=== PATIENT | male | born 1980 | race Caucasian/White ===

== ENCOUNTER 2017-03-02 15:21 | Emergency (ER) | payer MEDICAID ==
[~2017-03-02] VITALS: Ht 195.6 cm; Wt 115.9 kg
[~2017-03-02 15:21] MED LIST: ALPR0.25; LORA0.5T; OLAN1CAP14; TEMA30CA
[2017-03-02] MEDS ORDERED: LIDOCAINE 1%, 20ML SQ ONE (16:00)
[2017-03-02 16:09] LABS: BLOOD UREA NITROGEN 9 mg/dL (7-18)
[2017-03-02] MEDS ORDERED: LIDOCAINE 1%, 20ML ONE (16:09)
[2017-03-02] MEDS ORDERED: SODIUM CHLORIDE 0.9% 1,000ML IVBOLUS ONE (16:30)
[2017-03-02 18:26] VITALS: BP 91/68
== END 2017-03-02 18:28 | disposition home or self-care (01) ==
LOC: ED 18:17
DX: S92.514B Nondisplaced fracture of proximal phalanx of right lesser toe(s), initial encounter for open fracture (principal); S91.115A Laceration without foreign body of left lesser toe(s) without damage to nail, initial encounter; R55 Syncope and collapse; I95.2 Hypotension due to drugs; T50.905A Adverse effect of unspecified drugs, medicaments and biological substances, initial encounter; F17.200 Nicotine dependence, unspecified, uncomplicated; W18.39XA Other fall on same level, initial encounter; Y93.01 Activity, walking, marching and hiking; Y92.000 Kitchen of unspecified non-institutional (private) residence as the place of occurrence of the external cause; Y99.8 Other external cause status
CPT/HCPCS: 12001; 36415; 80048; 82040; 85025; 93005

== ENCOUNTER 2017-04-27 08:50 | Inpatient (IN) | payer MEDICAID ==
[~2017-04-27] VITALS: Ht 195.6 cm; Wt 118.4 kg
[2017-04-27] MEDS ORDERED: SODIUM CHLORIDE FLUSH 10ML SYR IVF ONE (09:30)
[2017-04-27] MEDS ORDERED: FAMOTIDINE 20 MG/2 ML IVP ONE (09:30)
[2017-04-27] MEDS ORDERED: ONDANSETRON 2MG/ML, 2ML ONE (09:38)
[2017-04-27] MEDS ORDERED: FAMOTIDINE 20 MG/2 ML ONE (09:38)
[2017-04-27 09:46] LABS: HEMATOCRIT 55.6 % (39.2-51.8); HEMOGLOBIN 18.6 g/dL (13.7-18.0); WHITE BLOOD COUNT 20.5 x10^3/uL (3.4-10)
[2017-04-27] MEDS ORDERED: SODIUM CHLORIDE 0.9% 1,000 ML IV ONE (10:00)
[2017-04-27] MEDS ORDERED: SODIUM CHLORIDE 0.9% 1,000ML IVBOLUS ONE ×4 (10:00→16:15)
[2017-04-27] MEDS ORDERED: ONDANSETRON 2MG/ML, 2ML IVPush ONE (10:00)
[2017-04-27 11:24] LABS: BLOOD UREA NITROGEN 8 mg/dL (7-18)
[2017-04-27 11:42] LABS: ASPARTATE AMINO TRANSFERASE 130 U/L (15-37)
[2017-04-27] MEDS ORDERED: PROMETHAZINE 25 MG/ML, 1ML ONE (11:59)
[2017-04-27] MEDS ORDERED: PROMETHAZINE 25 MG/ML, 1ML IM ONE (12:00)
[2017-04-27] MEDS ORDERED: ACETAMINOPHEN 650 MG SUPP PR ONE (12:00)
[2017-04-27] MEDS ORDERED: CEFTRIAXONE PMX 1GM/50ML 50 ML IVPB ONE (12:00)
[2017-04-27 12:04] LABS: PH, VENOUS 7.461 pH (7.320-7.420)
[2017-04-27] MEDS ORDERED: LORazepam 2 MG/ML, 1ML ONE ×2 (12:50→13:43)
[2017-04-27] MEDS: LORazepam 2 MG/ML, 1ML IVPush PRN ×5 (12:52→22:10)
[2017-04-27] MEDS ORDERED: LORazepam 2 MG/ML, 1ML IVPush ONE (14:00)
[2017-04-27] MEDS: SODIUM CHLORIDE 0.9% 1,000 ML IV SCH ×2 (14:02→20:14)
[2017-04-27] MEDS ORDERED: ONDANSETRON 2MG/ML, 2ML IVPush PRN (14:30)
[2017-04-27] MEDS ORDERED: POLYETHYLENE GLYCOL 17 GM PACKET PO PRN (14:30)
[2017-04-27] MEDS ORDERED: ACETAMINOPHEN 325 MG TABLET PO PRN (14:30)
[2017-04-27] MEDS: HYDROmorphone 2 MG/ML, 1ML IVPush PRN ×4 (15:45→23:36)
[2017-04-27 16:20] VITALS: BP 145/98
[2017-04-27] MEDS ORDERED: SODIUM PHOSPHATE 20 MMOL in SODIUM CHLORIDE 0.9% 500 ML IV ONE (16:30)
[2017-04-27] MEDS: PANTOPROZOLE 40MG TABLET PO SCH (16:46)
[2017-04-27] MEDS: NICOTINE 14MG/24 HR PATCH.TD24 TD SCH (16:49)
[2017-04-27] MEDS: CHLORDIAZEPOXIDE 25 MG CAPSULE PO SCH ×2 (17:06→21:01)
[2017-04-27] MEDS: LABETALOL 5MG/ML, 20ML IVPush PRN ×2 (18:05→22:18)
[2017-04-27] MEDS: ENOXAPARIN 40 MG/0.4 ML SQ SCH (18:05)
[2017-04-27] MEDS: POTASSIUM CHLORIDE 20 MEQ, MAGNESIUM SULFATE 2 GM, THIAMINE 100 MG, MVI ADULT 10 ML, FO... IV SCH (20:11)
[2017-04-27] MEDS: PROMETHAZINE 25 MG/ML, 1ML IM PRN (21:01)
[2017-04-27] MEDS ORDERED: OMEP20TA62 PO (21:46)
[2017-04-27] MEDS ORDERED: CYCL-259 PO (21:46)
[2017-04-27] MEDS ORDERED: GABA-826 PO (21:46)
[2017-04-27] MEDS ORDERED: TIZA2CAP PO (21:46)
[2017-04-27] MEDS ORDERED: PROP80CA3 PO (21:47)
[2017-04-27] MEDS: OXYcodone IR 5MG TABLET PO PRN (21:54)
[2017-04-27] MEDS: PIPERACILLIN/TAZO/PMX 3.375GM 50 ML IV SCH (22:02)
[2017-04-28] MEDS: LORazepam 2 MG/ML, 1ML IVPush PRN ×10 (00:19→23:36)
[2017-04-28] MEDS: LABETALOL 5MG/ML, 20ML IVPush PRN ×5 (01:08→14:26)
[2017-04-28] MEDS: PIPERACILLIN/TAZO/PMX 3.375GM 50 ML IV SCH ×4 (01:29→19:51)
[2017-04-28] MEDS: PROMETHAZINE 25 MG/ML, 1ML IM PRN ×2 (02:38→12:14)
[2017-04-28] MEDS: HYDROmorphone 2 MG/ML, 1ML IVPush PRN ×3 (02:50→22:29)
[2017-04-28 04:55] LABS: HEMATOCRIT 41.4 % (39.2-51.8); HEMOGLOBIN 14.1 g/dL (13.7-18.0); WHITE BLOOD COUNT 12.4 x10^3/uL (3.4-10)
[2017-04-28 04:56] LABS: ASPARTATE AMINO TRANSFERASE 93 U/L (15-37)
[2017-04-28 05:07] LABS: BLOOD UREA NITROGEN 5 mg/dL (7-18)
[2017-04-28] MEDS: CHLORDIAZEPOXIDE 25 MG CAPSULE PO SCH ×4 (05:34→20:34)
[2017-04-28] MEDS: OXYcodone IR 5MG TABLET PO PRN ×3 (05:53→21:36)
[2017-04-28] MEDS ORDERED: POTASSIUM CHLORIDE 20 MEQ TAB.ER.PRT PO ONE (07:30)
[2017-04-28] MEDS: SODIUM CHLORIDE 0.45% 1,000 ML IV SCH ×3 (09:30→21:38)
[2017-04-28] MEDS ORDERED: SODIUM CHLORIDE 0.45% 1,000 ML IV SCH (09:30)
[2017-04-28] MEDS: SENNA/DOCUSATE TABLET PO SCH (10:06)
[2017-04-28] MEDS: PANTOPROZOLE 40MG TABLET PO SCH ×2 (10:06→20:34)
[2017-04-28] MEDS: ENOXAPARIN 40 MG/0.4 ML SQ SCH (13:51)
[2017-04-28] MEDS: NICOTINE 14MG/24 HR PATCH.TD24 TD SCH (13:51)
[2017-04-28] MEDS ORDERED: SODIUM CHLORIDE 0.9% 1,000 ML IV SCH (14:02)
[2017-04-28] MEDS: POTASSIUM CHLORIDE 20 MEQ, MAGNESIUM SULFATE 2 GM, THIAMINE 100 MG, MVI ADULT 10 ML, FO... IV SCH (14:29)
[2017-04-28] MEDS ORDERED: ALUMINUM/MAG/SIMETHICONE 30 ML UDC PO PRN (15:30)
[2017-04-29] MEDS: PIPERACILLIN/TAZO/PMX 3.375GM 50 ML IV SCH ×4 (01:21→20:04)
[2017-04-29] MEDS: LORazepam 2 MG/ML, 1ML IVPush PRN ×6 (01:21→21:38)
[2017-04-29] MEDS: HYDROmorphone 2 MG/ML, 1ML IVPush PRN ×2 (01:39→04:39)
[2017-04-29] MEDS: SODIUM CHLORIDE 0.45% 1,000 ML IV SCH ×2 (03:33→13:12)
[2017-04-29] MEDS: CHLORDIAZEPOXIDE 25 MG CAPSULE PO SCH ×3 (05:20→20:05)
[2017-04-29 06:06] LABS: HEMOGLOBIN 13.7 g/dL (13.7-18.0); WHITE BLOOD COUNT 8.5 x10^3/uL (3.4-10)
[2017-04-29 06:10] LABS: ASPARTATE AMINO TRANSFERASE 86 U/L (15-37); BLOOD UREA NITROGEN 5 mg/dL (7-18)
[2017-04-29] MEDS: PANTOPROZOLE 40MG TABLET PO SCH ×2 (09:09→20:05)
[2017-04-29] MEDS: SENNA/DOCUSATE TABLET PO SCH (09:09)
[2017-04-29] MEDS: POTASSIUM CHLORIDE 20 MEQ TAB.ER.PRT PO SCH ×2 (09:13→18:29)
[2017-04-29 12:03] VITALS: BP 149/101
[2017-04-29] MEDS: ENOXAPARIN 40 MG/0.4 ML SQ SCH (15:50)
[2017-04-29] MEDS: NICOTINE 14MG/24 HR PATCH.TD24 TD SCH (15:51)
[2017-04-29] MEDS: POTASSIUM CHLORIDE 20 MEQ, MAGNESIUM SULFATE 2 GM, THIAMINE 100 MG, MVI ADULT 10 ML, FO... IV SCH (16:52)
[2017-04-29 18:24] VITALS: BP 124/80
[2017-04-29] MEDS ORDERED: POLYETHYLENE GLYCOL 17 GM PACKET PO PRN (19:30)
[2017-04-29] MEDS ORDERED: ACETAMINOPHEN 325 MG TABLET PO PRN (19:30)
[2017-04-29] MEDS ORDERED: PROMETHAZINE 25 MG/ML, 1ML IM PRN (19:30)
[2017-04-30] VITALS (11 sets, daily range): BP systolic 129–167; BP diastolic 82–111
[2017-04-30] MEDS: PIPERACILLIN/TAZO/PMX 3.375GM 50 ML IV SCH ×4 (01:43→20:25)
[2017-04-30] MEDS: SODIUM CHLORIDE 0.45% 1,000 ML IV SCH (03:02)
[2017-04-30 06:26] LABS: BLOOD UREA NITROGEN 3 mg/dL (7-18)
[2017-04-30] MEDS: CHLORDIAZEPOXIDE 25 MG CAPSULE PO SCH ×2 (07:36→15:02)
[2017-04-30] MEDS: SENNA/DOCUSATE TABLET PO SCH (07:37)
[2017-04-30] MEDS: PANTOPROZOLE 40MG TABLET PO SCH ×2 (07:37→20:25)
[2017-04-30] MEDS ORDERED: SENNA/DOCUSATE TABLET PO SCH (09:00)
[2017-04-30] MEDS: LORazepam 2 MG/ML, 1ML IVPush PRN ×2 (09:45→22:41)
[2017-04-30] MEDS: LABETALOL 5MG/ML, 20ML IVPush PRN ×2 (13:15→20:42)
[2017-04-30] MEDS: NICOTINE 14MG/24 HR PATCH.TD24 TD SCH (14:50)
[2017-04-30] MEDS: ENOXAPARIN 40 MG/0.4 ML SQ SCH (15:02)
[2017-04-30] MEDS: LISINOPRIL 10 MG TABLET PO SCH (16:40)
[2017-04-30] MEDS: CARVEDILOL 6.25 MG TABLET PO SCH (16:41)
[2017-04-30] MEDS ORDERED: PNEUMOCOCCAL 23 VACCINE IM-VACC ONE (22:30)
[2017-05-01] VITALS (7 sets, daily range): BP systolic 127–163; BP diastolic 91–112
[2017-05-01] MEDS: PIPERACILLIN/TAZO/PMX 3.375GM 50 ML IV SCH ×3 (02:04→14:00)
[2017-05-01] MEDS: CARVEDILOL 6.25 MG TABLET PO SCH (06:10)
[2017-05-01] MEDS: PANTOPROZOLE 40MG TABLET PO SCH (08:29)
[2017-05-01] MEDS: SENNA/DOCUSATE TABLET PO SCH (08:29)
[2017-05-01] MEDS: LISINOPRIL 10 MG TABLET PO SCH (08:30)
[2017-05-01] MEDS: NICOTINE 14MG/24 HR PATCH.TD24 TD SCH (14:30)
[2017-05-01] MEDS: ENOXAPARIN 40 MG/0.4 ML SQ SCH (14:30)
[2017-05-01] MEDS ORDERED: CIPR500T87 PO (14:32)
[2017-05-01] MEDS ORDERED: LISI-167 PO (14:32)
== END 2017-05-01 16:08 | disposition home or self-care (01) | DRG 871 ==
LOC: ED 09:45 → EDIP 14:14 → CCU 15:16 → 4NOR 04-29 11:50 → DCLOUNGE 05-01 15:52
PROVIDERS: ADMIT Internal Medicine; ATTEND Internal Medicine
DX: A41.9 Sepsis, unspecified organism (principal); N17.0 Acute kidney failure with tubular necrosis; E87.4 Mixed disorder of acid-base balance; F10.231 Alcohol dependence with withdrawal delirium; N12 Tubulo-interstitial nephritis, not specified as acute or chronic; E86.0 Dehydration; F31.9 Bipolar disorder, unspecified; F42.9 Obsessive-compulsive disorder, unspecified; F60.9 Personality disorder, unspecified; I10 Essential (primary) hypertension; K21.9 Gastro-esophageal reflux disease without esophagitis; K70.10 Alcoholic hepatitis without ascites; G62.9 Polyneuropathy, unspecified; F17.210 Nicotine dependence, cigarettes, uncomplicated; D75.89 Other specified diseases of blood and blood-forming organs; F12.90 Cannabis use, unspecified, uncomplicated; F41.9 Anxiety disorder, unspecified; M54.9 Dorsalgia, unspecified; R63.0 Anorexia; Z87.11 Personal history of peptic ulcer disease; Z68.31 Body mass index [BMI] 31.0-31.9, adult
CPT/HCPCS: 36415; 74022; 74176; 80047; 80048; 80053; 80061; 81001; 82010; 82550; 82607; 82746; 82803; 82962; 83036; 83605; 83690; 83735; 84100; 84443; 85025; 85610; 87040; 87081; 87086; 90732; 93005; 96361; 96365; 96372; 96375; J0696; J1170; J1650; J2405; J2543; J2550; J3411; J3475; J3480; J7042; J2060; J7030; J7040; S0028

== ENCOUNTER 2017-08-02 10:32 | Inpatient (IN) | payer MEDICAID ==
[~2017-08-02] VITALS: Ht 195.6 cm; Wt 113.0 kg
[~2017-08-02 10:32] MED LIST changes: +CIPR500T87 PO; +CYCL-259 PO; +GABA-826 PO; +LISI-167 PO; +OMEP20TA62 PO; +PROP80CA3 PO; +TIZA2CAP PO
[2017-08-02] MEDS ORDERED: ONDANSETRON 2MG/ML, 2ML ONE (11:44)
[2017-08-02] MEDS ORDERED: MAALOX/HYOSCYAMINE/LIDOCAINE 45 ML BTL ONE (11:44)
[2017-08-02] MEDS ORDERED: FAMOTIDINE 20 MG/2 ML ONE (11:44)
[2017-08-02 11:52] LABS: MEAN CORPUSCULAR HEMOGLOBIN 31.6 pg (27.5-34.5); MEAN CORPUSCULAR HGB CONC 33.6 g/dL (33.2-36.2); MEAN CORPUSCULAR VOLUME 94.1 fL (81-97); MEAN PLATELET VOLUME 10.7 fL (7.4-10.4); PLATELET COUNT 236 x10^3/uL (130-400); RED BLOOD COUNT 5.54 x10^6/uL (4.38-5.82)
[2017-08-02 11:56] LABS: ALBUMIN 4.3 g/dL (3.4-5.0); ANION GAP 9 mmol/L (5-15); CALCIUM 8.9 mg/dL (8.5-10.1); CHLORIDE 103 mmol/L (98-107)
[2017-08-02 12:00] LABS: ALANINE AMINOTRANSFERASE 34 U/L (12-78); ALKALINE PHOSPHATASE 71 U/L (45-117); BILIRUBIN,TOTAL 1.1 mg/dL (0.2-1.0); CREATININE 2.24 mg/dL (0.7-1.3); TOTAL PROTEIN 8.8 g/dL (6.4-8.2)
[2017-08-02] MEDS ORDERED: SODIUM CHLORIDE FLUSH 10ML SYR IVF ONE (12:00)
[2017-08-02] MEDS ORDERED: FAMOTIDINE 20 MG/2 ML IVP ONE (12:00)
[2017-08-02] MEDS ORDERED: LORazepam 2 MG/ML, 1ML IVPush ONE ×2 (12:00→23:45)
[2017-08-02] MEDS ORDERED: SODIUM CHLORIDE 0.9% 1,000ML IVBOLUS ONE (12:00)
[2017-08-02] MEDS ORDERED: MAALOX/HYOSCYAMINE/LIDOCAINE 45 ML BTL PO ONE (12:00)
[2017-08-02] MEDS ORDERED: ONDANSETRON 2MG/ML, 2ML IVPush ONE (12:00)
[2017-08-02 12:14] LABS: BASOPHILS # (AUTO) 0.05 x10^3/uL (0-0.1); BASOPHILS % (AUTO) 0 % (0-1); EOSINOPHILS # (AUTO) 0.21 x10^3/uL (0-0.4); EOSINOPHILS % (AUTO) 2 % (1-7); LYMPHOCYTES # (AUTO) 1.45 x10^3/uL (1-3.4); LYMPHOCYTES % (AUTO) 10 % (22-44); MD SCAN; MONOCYTES # (AUTO) 1.49 x10^3/uL (0.2-0.8); MONOCYTES % (AUTO) 10 % (2-9); NEUTROPHILS # (AUTO) 11.34 x10^3/uL (1.8-6.8); NEUTROPHILS % (AUTO) 78 % (42-75)
[2017-08-02] MEDS: SODIUM CHLORIDE 0.9% 1,000 ML IV ONE (12:18)
[2017-08-02] MEDS ORDERED: MORPHINE SULFATE 4 MG/ML, 1ML ONE ×2 (12:20→18:32)
[2017-08-02] MEDS: MORPHINE SULFATE 4 MG/ML, 1ML IVPush PRN ×2 (12:26→18:49)
[2017-08-02] MEDS: SODIUM CHLORIDE 0.9% 1,000 ML IV SCH ×3 (13:23→23:15)
[2017-08-02] MEDS ORDERED: ONDANSETRON 2MG/ML, 2ML IVPush PRN (13:30)
[2017-08-02] MEDS ORDERED: TEMAZEPAM 15 MG CAPSULE PO PRN (13:30)
[2017-08-02] MEDS ORDERED: ACETAMINOPHEN 325 MG TABLET PO PRN (13:30)
[2017-08-02] MEDS ORDERED: GUAIFENESIN/DM 200-20MG, 10ML UDC PO PRN (13:30)
[2017-08-02] MEDS ORDERED: GABA800T2 PO (14:32)
[2017-08-02] MEDS ORDERED: BUSP5TAB2 PO (14:32)
[2017-08-02] MEDS ORDERED: LISI40TA PO (14:32)
[2017-08-02] MEDS ORDERED: ZOLP10TA5 PO (14:34)
[2017-08-02] MEDS ORDERED: PRAZ1CAP2 PO (14:34)
[2017-08-02] MEDS ORDERED: TIZA4CAP PO (14:34)
[2017-08-02] MEDS ORDERED: ENOXAPARIN 40 MG/0.4 ML ONE (16:16)
[2017-08-02] MEDS: ENOXAPARIN 40 MG/0.4 ML SQ SCH (16:18)
[2017-08-02 19:11] LABS: MICROSCOPIC INDICATED
[2017-08-02 19:19] LABS: AMPHETAMINE SCREEN, URINE Negative (Negative); BARBITURATE SCREEN, URINE Negative (Negative); BENZODIAZEPINE SCREEN, URINE Negative (Negative); CANNABINOID SCREEN, URINE Positive (Negative); COCAINE SCREEN, URINE Negative (Negative); METHADONE SCREEN, URINE Negative (Negative); OPIATE SCREEN, URINE Positive (Negative)
[2017-08-02 19:35] LABS: CULTURE INDICATED? NO
[2017-08-02] MEDS: ZOLPIDEM 5MG TABLET PO SCH (21:00)
[2017-08-02] MEDS: TIZANIDINE 4MG TABLET PO SCH (21:00)
[2017-08-02] MEDS: PRAZOSIN 1 MG CAPSULE PO SCH (21:00)
[2017-08-02] MEDS: GABAPENTIN 400 MG CAPSULE PO SCH (21:00)
[2017-08-02] MEDS: morphine SULFATE 10 MG/ML, 1ML IVPush PRN (23:15)
[2017-08-02 23:30] VITALS: BP 130/79
[2017-08-03 01:51] VITALS: BP 118/76
[2017-08-03] MEDS: morphine SULFATE 10 MG/ML, 1ML IVPush PRN ×5 (03:22→21:13)
[2017-08-03 05:16] LABS: MEAN CORPUSCULAR HEMOGLOBIN 31.7 pg (27.5-34.5); MEAN CORPUSCULAR HGB CONC 33.5 g/dL (33.2-36.2); MEAN CORPUSCULAR VOLUME 94.8 fL (81-97); MEAN PLATELET VOLUME 10.7 fL (7.4-10.4); PLATELET COUNT 180 x10^3/uL (130-400); RED BLOOD COUNT 4.84 x10^6/uL (4.38-5.82); RED CELL DISTRIBUTION WIDTH 14.1 % (9.4-14.8)
[2017-08-03 05:17] LABS: ANION GAP 8 mmol/L (5-15); CHLORIDE 108 mmol/L (98-107)
[2017-08-03 05:25] LABS: ALANINE AMINOTRANSFERASE 19 U/L (12-78); ALBUMIN 3.2 g/dL (3.4-5.0); ALKALINE PHOSPHATASE 56 U/L (45-117); BILIRUBIN,TOTAL 1.4 mg/dL (0.2-1.0); CHOL/HDL RATIO 3.8; CHOLESTEROL, TOTAL 134 mg/dL (140-239); CREATININE 1.03 mg/dL (0.7-1.3); HDL CHOL % 26 % (26-37); HDL CHOLESTEROL (DIRECT) 35 mg/dL (40-60); LDL CHOLESTEROL,CALCULATED 77 mg/dL (54-169); LDL/HDL RATIO 2.2 (0.5-3.0); TRIGLYCERIDES 110 mg/dL (50-200); VLDL CHOLESTEROL 22 mg/dL (0-25)
[2017-08-03 05:47] LABS: BASOPHILS # (AUTO) 0.06 x10^3/uL (0-0.1); BASOPHILS % (AUTO) 0 % (0-1); EOSINOPHILS # (AUTO) 0.13 x10^3/uL (0-0.4); EOSINOPHILS % (AUTO) 1 % (1-7); LYMPHOCYTES # (AUTO) 1.52 x10^3/uL (1-3.4); LYMPHOCYTES % (AUTO) 10 % (22-44); MD SCAN; MONOCYTES % (AUTO) 11 % (2-9); NEUTROPHILS # (AUTO) 11.27 x10^3/uL (1.8-6.8); NEUTROPHILS % (AUTO) 77 % (42-75)
[2017-08-03] MEDS: SODIUM CHLORIDE 0.9% 1,000 ML IV SCH (05:50)
[2017-08-03 07:00] VITALS: BP 145/85
[2017-08-03] MEDS ORDERED: LISINOPRIL 20 MG TABLET ONE (07:59)
[2017-08-03] MEDS ORDERED: MORPHINE SULFATE 4 MG/ML, 1ML ONE ×3 (08:00→17:06)
[2017-08-03] MEDS: TIZANIDINE 4MG TABLET PO SCH ×2 (08:11→21:14)
[2017-08-03] MEDS: LISINOPRIL 20 MG TABLET PO SCH (08:11)
[2017-08-03] MEDS: NICOTINE 14MG/24 HR PATCH.TD24 TD SCH (08:11)
[2017-08-03] MEDS: GABAPENTIN 400 MG CAPSULE PO SCH ×3 (08:11→21:14)
[2017-08-03] MEDS: BUSPIRONE 5 MG TABLET PO SCH (08:12)
[2017-08-03] MEDS ORDERED: OMEPRAZOLE 20 MG CAPSULE.DR PO SCH (09:00)
[2017-08-03] MEDS: D5%-LACTATED RINGERS 1,000 ML IV SCH ×2 (12:44→21:13)
[2017-08-03] MEDS: FAMOTIDINE 20 MG/2 ML IVPush SCH ×2 (12:44→21:15)
[2017-08-03] MEDS: ENOXAPARIN 40 MG/0.4 ML SQ SCH (12:53)
[2017-08-03 12:59] VITALS: BP 114/70
[2017-08-03 21:04] VITALS: BP 133/83
[2017-08-03] MEDS: ZOLPIDEM 5MG TABLET PO SCH (21:14)
[2017-08-03] MEDS: PRAZOSIN 1 MG CAPSULE PO SCH (21:15)
[2017-08-04] MEDS: morphine SULFATE 10 MG/ML, 1ML IVPush PRN ×5 (01:28→20:29)
[2017-08-04 01:53] VITALS: BP 98/61
[2017-08-04] MEDS: D5%-LACTATED RINGERS 1,000 ML IV SCH ×3 (05:59→23:30)
[2017-08-04 06:35] LABS: ALANINE AMINOTRANSFERASE 17 U/L (12-78); ALBUMIN 2.7 g/dL (3.4-5.0); ANION GAP 5 mmol/L (5-15); CALCIUM 8.5 mg/dL (8.5-10.1); CHLORIDE 107 mmol/L (98-107); CREATININE 0.85 mg/dL (0.7-1.3)
[2017-08-04 06:37] LABS: ALKALINE PHOSPHATASE 54 U/L (45-117); CREATINE KINASE, TOTAL 29 U/L (39-308); TOTAL PROTEIN 6.5 g/dL (6.4-8.2)
[2017-08-04 07:58] VITALS: BP 94/54
[2017-08-04] MEDS: LISINOPRIL 20 MG TABLET PO SCH (09:00)
[2017-08-04] MEDS: FAMOTIDINE 20 MG/2 ML IVPush SCH ×2 (09:18→20:29)
[2017-08-04] MEDS: NICOTINE 14MG/24 HR PATCH.TD24 TD SCH (09:18)
[2017-08-04] MEDS: TIZANIDINE 4MG TABLET PO SCH ×2 (09:19→20:30)
[2017-08-04] MEDS: BUSPIRONE 5 MG TABLET PO SCH (09:19)
[2017-08-04] MEDS: GABAPENTIN 400 MG CAPSULE PO SCH ×3 (09:19→20:30)
[2017-08-04] MEDS ORDERED: methylPREDNISolone SOD SUCC 125 MG/2 ML IVPush ONE (12:30)
[2017-08-04 13:30] VITALS: BP 117/74
[2017-08-04] MEDS: KETOROLAC 30 MG/1 ML IVPush SCH ×2 (14:38→17:35)
[2017-08-04] MEDS: ENOXAPARIN 40 MG/0.4 ML SQ SCH (14:39)
[2017-08-04 20:20] VITALS: BP 138/84
[2017-08-04] MEDS: ZOLPIDEM 5MG TABLET PO SCH (20:29)
[2017-08-04] MEDS: PRAZOSIN 1 MG CAPSULE PO SCH (20:30)
[2017-08-05] MEDS: KETOROLAC 30 MG/1 ML IVPush SCH (00:57)
[2017-08-05 01:15] LABS: MICROSCOPIC INDICATED
[2017-08-05 01:25] LABS: CULTURE INDICATED? NO
[2017-08-05 03:52] VITALS: BP 116/75
[2017-08-05 05:25] LABS: TRIGLYCERIDES 105 mg/dL (50-200)
[2017-08-05] MEDS ORDERED: MORPHINE SULFATE 4 MG/ML, 1ML IVPush PRN ×2 (06:00)
[2017-08-05] MEDS ORDERED: OXYcodone IR 5MG TABLET PO PRN (06:00)
[2017-08-05] MEDS ORDERED: MAALOX/HYOSCYAMINE/LIDOCAINE 45 ML BTL PO PRN (06:00)
[2017-08-05] MEDS: D5%-LACTATED RINGERS 1,000 ML IV SCH (07:16)
[2017-08-05] MEDS: LISINOPRIL 20 MG TABLET PO SCH (08:08)
[2017-08-05] MEDS: BUSPIRONE 5 MG TABLET PO SCH (08:08)
[2017-08-05] MEDS: GABAPENTIN 400 MG CAPSULE PO SCH (08:08)
[2017-08-05] MEDS: TIZANIDINE 4MG TABLET PO SCH (08:08)
[2017-08-05] MEDS: FAMOTIDINE 20 MG/2 ML IVPush SCH (08:09)
[2017-08-05] MEDS: NICOTINE 14MG/24 HR PATCH.TD24 TD SCH (08:09)
[2017-08-05 10:36] VITALS: BP 111/66
[2017-08-05 13:52] VITALS: BP 137/74
[2017-08-05] MEDS ORDERED: MAG355OR14 PO (13:59)
[2017-08-05] MEDS ORDERED: OXYC5TAB3 PO (14:01)
[2017-08-05] MEDS ORDERED: FLU VACC QS2017-18 (36MOS+) UP/PF 0.5 ML IM-VACC ONE (14:30)
== END 2017-08-05 16:49 | disposition home or self-care (01) | DRG 438 ==
LOC: ED 12:46 → EDIP 12:59 → SUATTDRO 13:23 → 4EST 22:30
PROVIDERS: ADMIT Internal Medicine; ATTEND Internal Medicine
DX: K85.20 Alcohol induced acute pancreatitis without necrosis or infection (principal); N17.0 Acute kidney failure with tubular necrosis; R65.11 Systemic inflammatory response syndrome (SIRS) of non-infectious origin with acute organ dysfunction; F10.21 Alcohol dependence, in remission; K70.9 Alcoholic liver disease, unspecified; K74.60 Unspecified cirrhosis of liver; F17.210 Nicotine dependence, cigarettes, uncomplicated; F42.9 Obsessive-compulsive disorder, unspecified; I10 Essential (primary) hypertension; K27.9 Peptic ulcer, site unspecified, unspecified as acute or chronic, without hemorrhage or perforation; Z79.899 Other long term (current) drug therapy; Z23 Encounter for immunization
CPT/HCPCS: 36415; 76700; 80053; 80061; 80307; 81001; 82550; 83690; 83735; 84478; 85025; 90686; 93005; 96361; 96374; 96375; 96376; J1650; J1885; J2405; G0479; J2060; J2270; J2930; J7030; J7121; S0028

== ENCOUNTER 2017-09-29 13:04 | Inpatient (IN) | payer MEDICAID ==
[~2017-09-29] VITALS: Ht 195.6 cm; Wt 112.9 kg
[~2017-09-29 13:04] MED LIST changes: +BUSP5TAB2 PO; +GABA800T2 PO; +LISI40TA PO; +MAG355OR14 PO; +OXYC5TAB3 PO; +PRAZ1CAP2 PO; +TIZA4CAP PO; +ZOLP10TA5 PO
[2017-09-29 14:52] LABS: BASOPHILS # (AUTO) 0.03 x10^3/uL (0-0.1); BASOPHILS % (AUTO) 0 % (0-1); EOSINOPHILS # (AUTO) 0.11 x10^3/uL (0-0.4); EOSINOPHILS % (AUTO) 1 % (1-7); LYMPHOCYTES # (AUTO) 2.05 x10^3/uL (1-3.4); LYMPHOCYTES % (AUTO) 21 % (22-44); MD NO; MEAN CORPUSCULAR HEMOGLOBIN 32.4 pg (27.5-34.5); MEAN CORPUSCULAR HGB CONC 33.7 g/dL (33.2-36.2); MEAN CORPUSCULAR VOLUME 96.1 fL (81-97); MEAN PLATELET VOLUME 8.3 fL (7.4-10.4); MONOCYTES # (AUTO) 0.41 x10^3/uL (0.2-0.8); MONOCYTES % (AUTO) 4 % (2-9); NEUTROPHILS # (AUTO) 7.26 x10^3/uL (1.8-6.8); NEUTROPHILS % (AUTO) 74 % (42-75); PLATELET COUNT 215 x10^3/uL (130-400); RED BLOOD COUNT 5.58 x10^6/uL (4.38-5.82); RED CELL DISTRIBUTION WIDTH 18.9 % (9.4-14.8)
[2017-09-29] MEDS ORDERED: PROMETHAZINE 25 MG/ML, 1ML IM ONE (15:00)
[2017-09-29] MEDS ORDERED: THIAMINE 100MG TABLET PO ONE (15:00)
[2017-09-29] MEDS ORDERED: LORazepam 2 MG/ML, 1ML IVPush ONE (15:00)
[2017-09-29] MEDS ORDERED: SODIUM CHLORIDE FLUSH 10ML SYR IVF ONE (15:00)
[2017-09-29] MEDS ORDERED: SODIUM CHLORIDE 0.9% 1,000ML IVBOLUS ONE ×2 (15:00→15:30)
[2017-09-29] MEDS ORDERED: KETOROLAC 30 MG/1 ML IVPush ONE (15:00)
[2017-09-29] MEDS ORDERED: ONDANSETRON 2MG/ML, 2ML IVPush ONE (15:00)
[2017-09-29] MEDS ORDERED: MORPHINE SULFATE 4 MG/ML, 1ML ONE ×2 (15:01→16:36)
[2017-09-29] MEDS ORDERED: THIAMINE 100MG TABLET ONE (15:01)
[2017-09-29] MEDS ORDERED: KETOROLAC 30 MG/1 ML ONE (15:01)
[2017-09-29] MEDS ORDERED: ONDANSETRON 2MG/ML, 2ML ONE (15:01)
[2017-09-29] MEDS ORDERED: LORazepam 2 MG/ML, 1ML ONE (15:02)
[2017-09-29 15:04] LABS: ALANINE AMINOTRANSFERASE 76 U/L (12-78); ALBUMIN 4.1 g/dL (3.4-5.0); ANION GAP 13 mmol/L (5-15); CHLORIDE 105 mmol/L (98-107); CREATININE 1.14 mg/dL (0.7-1.3)
[2017-09-29] MEDS: MORPHINE SULFATE 4 MG/ML, 1ML IVPush PRN ×2 (15:06→16:39)
[2017-09-29 15:07] LABS: ALKALINE PHOSPHATASE 104 U/L (45-117); BILIRUBIN,TOTAL 0.5 mg/dL (0.2-1.0); TOTAL PROTEIN 8.3 g/dL (6.4-8.2)
[2017-09-29] MEDS ORDERED: PROMETHAZINE 25 MG/ML, 1ML ONE (15:08)
[2017-09-29] MEDS ORDERED: SODIUM CHLORIDE 0.9% 1,000 ML IV ONE (15:24)
[2017-09-29] MEDS ORDERED: ONDANSETRON 2MG/ML, 2ML IVPush PRN (17:00)
[2017-09-29] MEDS ORDERED: LABETALOL 5MG/ML, 20ML IVPush PRN (17:00)
[2017-09-29] MEDS ORDERED: LORazepam 2 MG/ML, 1ML IVPush PRN (17:00)
[2017-09-29] MEDS ORDERED: LORazepam 1MG TABLET PO PRN (17:00)
[2017-09-29 18:34] VITALS: BP 152/101
[2017-09-29] MEDS: BUSPIRONE 10 MG TABLET PO SCH (19:47)
[2017-09-29] MEDS: NICOTINE 21 MG/24 HR PATCH.TD24 TD SCH (19:47)
[2017-09-29] MEDS: PRAZOSIN 1 MG CAPSULE PO SCH (19:48)
[2017-09-29] MEDS: HEPARIN 5,000 UNITS/ML, 1ML SQ SCH (19:49)
[2017-09-29] MEDS: FAMOTIDINE 20 MG/2 ML IVPush SCH (19:49)
[2017-09-29] MEDS: ONDANSETRON ODT 4 MG PO PRN ×2 (19:49→23:44)
[2017-09-29] MEDS: THIAMINE 100MG TABLET PO SCH (19:49)
[2017-09-29] MEDS: POTASSIUM CHLORIDE 20 MEQ, MAGNESIUM SULFATE 2 GM, MVI ADULT 10 ML, FOLIC ACID 1 MG in ... IV SCH (19:50)
[2017-09-29] MEDS: INSULIN LISPRO 100 UNITS/ML, PEN SQ-INSULIN SCH (19:55)
[2017-09-29] MEDS: TEMAZEPAM 15 MG CAPSULE PO PRN ×2 (22:17→23:44)
[2017-09-29] MEDS: morphine SULFATE 10 MG/ML, 1ML IVPush PRN (22:17)
[2017-09-30] VITALS (8 sets, daily range): BP systolic 138–164; BP diastolic 93–118
[2017-09-30] MEDS: HEPARIN 5,000 UNITS/ML, 1ML SQ SCH ×3 (03:40→19:30)
[2017-09-30] MEDS: morphine SULFATE 10 MG/ML, 1ML IVPush PRN ×5 (03:40→22:16)
[2017-09-30 05:31] LABS: BASOPHILS # (AUTO) 0.01 x10^3/uL (0-0.1); BASOPHILS % (AUTO) 0 % (0-1); EOSINOPHILS # (AUTO) 0.01 x10^3/uL (0-0.4); EOSINOPHILS % (AUTO) 0 % (1-7); LYMPHOCYTES # (AUTO) 1.09 x10^3/uL (1-3.4); LYMPHOCYTES % (AUTO) 9 % (22-44); MD NO; MEAN CORPUSCULAR HEMOGLOBIN 32.8 pg (27.5-34.5); MEAN CORPUSCULAR HGB CONC 34.4 g/dL (33.2-36.2); MEAN CORPUSCULAR VOLUME 95.4 fL (81-97); MEAN PLATELET VOLUME 8.9 fL (7.4-10.4); MONOCYTES # (AUTO) 0.51 x10^3/uL (0.2-0.8); MONOCYTES % (AUTO) 4 % (2-9); NEUTROPHILS # (AUTO) 10.78 x10^3/uL (1.8-6.8); NEUTROPHILS % (AUTO) 87 % (42-75); PLATELET COUNT 172 x10^3/uL (130-400); RED BLOOD COUNT 5.11 x10^6/uL (4.38-5.82); RED CELL DISTRIBUTION WIDTH 18.6 % (9.4-14.8)
[2017-09-30 05:39] LABS: ALBUMIN 3.8 g/dL (3.4-5.0); CHLORIDE 106 mmol/L (98-107)
[2017-09-30 05:50] LABS: ALANINE AMINOTRANSFERASE 53 U/L (12-78); ALKALINE PHOSPHATASE 83 U/L (45-117); ANION GAP 9 mmol/L (5-15); BILIRUBIN,TOTAL 0.9 mg/dL (0.2-1.0); CALCIUM 8.6 mg/dL (8.5-10.1); CHOL/HDL RATIO 4.2; CHOLESTEROL, TOTAL 199 mg/dL (140-239); HDL CHOL % 24 % (26-37); HDL CHOLESTEROL (DIRECT) 47 mg/dL (40-60); LDL CHOLESTEROL,CALCULATED 115 mg/dL (54-169); LDL/HDL RATIO 2.4 (0.5-3.0); TOTAL PROTEIN 7.2 g/dL (6.4-8.2); TRIGLYCERIDES 184 mg/dL (50-200); VLDL CHOLESTEROL 37 mg/dL (0-25)
[2017-09-30] MEDS: INSULIN LISPRO 100 UNITS/ML, PEN SQ-INSULIN SCH ×4 (07:00→21:00)
[2017-09-30] MEDS ORDERED: LISINOPRIL 20 MG TABLET ONE (08:27)
[2017-09-30] MEDS ORDERED: GABAPENTIN 400 MG CAPSULE ONE (08:29)
[2017-09-30] MEDS: FAMOTIDINE 20 MG/2 ML IVPush SCH (08:34)
[2017-09-30] MEDS: THIAMINE 100MG TABLET PO SCH (08:35)
[2017-09-30] MEDS: GABAPENTIN 400 MG CAPSULE PO SCH ×3 (08:35→21:00)
[2017-09-30] MEDS: BUSPIRONE 10 MG TABLET PO SCH ×2 (08:35→21:01)
[2017-09-30] MEDS: LISINOPRIL 20 MG TABLET PO SCH (09:00)
[2017-09-30] MEDS: METOPROLOL TARTRATE 25 MG TABLET PO SCH ×2 (11:31→18:20)
[2017-09-30] MEDS: NICOTINE 21 MG/24 HR PATCH.TD24 TD SCH (18:20)
[2017-09-30] MEDS: POTASSIUM CHLORIDE 20 MEQ, MAGNESIUM SULFATE 2 GM, MVI ADULT 10 ML, FOLIC ACID 1 MG in ... IV SCH (21:01)
[2017-09-30] MEDS: PRAZOSIN 1 MG CAPSULE PO SCH (21:02)
[2017-09-30] MEDS: TEMAZEPAM 15 MG CAPSULE PO PRN (22:17)
[2017-10-01 01:53] VITALS: BP 124/77
[2017-10-01] MEDS: morphine SULFATE 10 MG/ML, 1ML IVPush PRN ×5 (03:10→22:51)
[2017-10-01] MEDS: HEPARIN 5,000 UNITS/ML, 1ML SQ SCH ×3 (03:10→19:30)
[2017-10-01] MEDS: METOPROLOL TARTRATE 25 MG TABLET PO SCH ×2 (05:29→17:33)
[2017-10-01 05:39] LABS: BASOPHILS % (AUTO) 0 % (0-1); EOSINOPHILS # (AUTO) 0.12 x10^3/uL (0-0.4); EOSINOPHILS % (AUTO) 1 % (1-7); LYMPHOCYTES # (AUTO) 1.29 x10^3/uL (1-3.4); LYMPHOCYTES % (AUTO) 13 % (22-44); MD NO; MEAN CORPUSCULAR HGB CONC 34.2 g/dL (33.2-36.2); MEAN CORPUSCULAR VOLUME 96.7 fL (81-97); MEAN PLATELET VOLUME 8.5 fL (7.4-10.4); MONOCYTES # (AUTO) 0.48 x10^3/uL (0.2-0.8); MONOCYTES % (AUTO) 5 % (2-9); NEUTROPHILS # (AUTO) 7.87 x10^3/uL (1.8-6.8); NEUTROPHILS % (AUTO) 81 % (42-75); PLATELET COUNT 133 x10^3/uL (130-400); RED BLOOD COUNT 4.55 x10^6/uL (4.38-5.82); RED CELL DISTRIBUTION WIDTH 18.1 % (9.4-14.8)
[2017-10-01 05:40] LABS: CALCIUM 8.2 mg/dL (8.5-10.1); CHLORIDE 102 mmol/L (98-107)
[2017-10-01 05:45] LABS: ANION GAP 8 mmol/L (5-15); CREATININE 0.74 mg/dL (0.7-1.3)
[2017-10-01 05:46] LABS: ALANINE AMINOTRANSFERASE 29 U/L (12-78); ALBUMIN 3.1 g/dL (3.4-5.0); ALKALINE PHOSPHATASE 65 U/L (45-117); BILIRUBIN,TOTAL 1.5 mg/dL (0.2-1.0); TOTAL PROTEIN 6.5 g/dL (6.4-8.2)
[2017-10-01] MEDS: INSULIN LISPRO 100 UNITS/ML, PEN SQ-INSULIN SCH ×4 (07:00→21:00)
[2017-10-01 08:48] VITALS: BP 131/91
[2017-10-01] MEDS: THIAMINE 100MG TABLET PO SCH (08:59)
[2017-10-01] MEDS: LISINOPRIL 20 MG TABLET PO SCH (08:59)
[2017-10-01] MEDS: BUSPIRONE 10 MG TABLET PO SCH ×2 (08:59→21:09)
[2017-10-01] MEDS: GABAPENTIN 400 MG CAPSULE PO SCH ×3 (08:59→21:00)
[2017-10-01 12:37] VITALS: BP 146/92
[2017-10-01] MEDS: NICOTINE 21 MG/24 HR PATCH.TD24 TD SCH (17:33)
[2017-10-01] MEDS: POTASSIUM CHLORIDE 20 MEQ, MAGNESIUM SULFATE 2 GM, MVI ADULT 10 ML, FOLIC ACID 1 MG in ... IV SCH (18:36)
[2017-10-01] MEDS: PRAZOSIN 1 MG CAPSULE PO SCH (21:09)
[2017-10-01 21:12] VITALS: BP 132/89
[2017-10-01] MEDS: TEMAZEPAM 15 MG CAPSULE PO PRN (22:51)
[2017-10-02 02:00] VITALS: BP 116/81
[2017-10-02] MEDS: HEPARIN 5,000 UNITS/ML, 1ML SQ SCH ×2 (03:16→11:30)
[2017-10-02] MEDS: METOPROLOL TARTRATE 25 MG TABLET PO SCH (05:21)
[2017-10-02] MEDS: morphine SULFATE 10 MG/ML, 1ML IVPush PRN (05:21)
[2017-10-02 05:23] VITALS: BP 149/98
[2017-10-02] MEDS: INSULIN LISPRO 100 UNITS/ML, PEN SQ-INSULIN SCH ×2 (07:00→11:00)
[2017-10-02 08:35] VITALS: BP 135/98
[2017-10-02] MEDS: LISINOPRIL 20 MG TABLET PO SCH (11:20)
[2017-10-02] MEDS: GABAPENTIN 400 MG CAPSULE PO SCH (11:20)
[2017-10-02] MEDS: THIAMINE 100MG TABLET PO SCH (11:20)
[2017-10-02] MEDS: BUSPIRONE 10 MG TABLET PO SCH (11:20)
== END 2017-10-02 14:42 | disposition home or self-care (01) | DRG 432 ==
LOC: ED 14:00 → EDIP 15:27 → 4WST 18:30
PROVIDERS: ADMIT Hospitalist; ATTEND Hospitalist
DX: K70.10 Alcoholic hepatitis without ascites (principal); K85.20 Alcohol induced acute pancreatitis without necrosis or infection; E87.2 Acidosis; F11.20 Opioid dependence, uncomplicated; F10.239 Alcohol dependence with withdrawal, unspecified; E86.0 Dehydration; N28.9 Disorder of kidney and ureter, unspecified; F17.210 Nicotine dependence, cigarettes, uncomplicated; F12.90 Cannabis use, unspecified, uncomplicated; F31.9 Bipolar disorder, unspecified; F41.1 Generalized anxiety disorder; F42.9 Obsessive-compulsive disorder, unspecified; F43.10 Post-traumatic stress disorder, unspecified; G89.29 Other chronic pain; I10 Essential (primary) hypertension; M54.5 Low back pain; K21.9 Gastro-esophageal reflux disease without esophagitis; Z87.11 Personal history of peptic ulcer disease
CPT/HCPCS: 36415; 80053; 80061; 80307; 82962; 83036; 83690; 83735; 84100; 85025; 96361; 96372; 96374; 96375; 96376; J1644; J1885; J2405; J2550; J3475; J3480; J7042; Q0162; J2060; J2270; J7030; S0028

== ENCOUNTER 2019-12-18 14:30 | Emergency (ER) | payer MEDICAID ==
[~2019-12-18] VITALS: Ht 195.6 cm; Wt 107.9 kg
[~2019-12-18 14:30] MED LIST changes: -GABA800T2 PO; +GABA800T5 PO
--- NOTE | 2019-12-18 14:48 | NUR ---
CALL X 1, NO ANSWER
[2019-12-18 14:59] VITALS: BP 141/100
[2019-12-18 15:51] LABS: BASOPHILS # (AUTO) 0.03 x10^3/uL (0-0.1); BASOPHILS % (AUTO) 0 % (0-1); EOSINOPHILS # (AUTO) 0.04 x10^3/uL (0-0.4); EOSINOPHILS % (AUTO) 0 % (1-7); LYMPHOCYTES # (AUTO) 1.55 x10^3/uL (1-3.4); LYMPHOCYTES % (AUTO) 16 % (22-44); MD NO; MEAN CORPUSCULAR HEMOGLOBIN 35.3 pg (27.5-34.5); MEAN CORPUSCULAR HGB CONC 33.8 g/dL (33.2-36.2); MEAN CORPUSCULAR VOLUME 104.4 fL (81-97); MEAN PLATELET VOLUME 8.8 fL (7.4-10.4); MONOCYTES # (AUTO) 0.64 x10^3/uL (0.2-0.8); MONOCYTES % (AUTO) 7 % (2-9); NEUTROPHILS # (AUTO) 7.35 x10^3/uL (1.8-6.8); NEUTROPHILS % (AUTO) 77 % (42-75); PLATELET COUNT 197 x10^3/uL (130-400); RED BLOOD COUNT 4.13 x10^6/uL (4.38-5.82); RED CELL DISTRIBUTION WIDTH 15.9 % (9.4-14.8)
[2019-12-18 15:59] LABS: ALANINE AMINOTRANSFERASE 59 U/L (12-78); ALBUMIN 5.1 g/dL (3.4-5.0); ANION GAP 8 mmol/L (5-15); CALCIUM 10.2 mg/dL (8.5-10.1); CHLORIDE 104 mmol/L (98-107); CREATININE 2.46 mg/dL (0.7-1.3)
[2019-12-18 16:00] LABS: ALKALINE PHOSPHATASE 66 U/L (45-117); BILIRUBIN,TOTAL 0.8 mg/dL (0.2-1.0); TOTAL PROTEIN 9.1 g/dL (6.4-8.2)
--- NOTE | 2019-12-18 17:14 | NUR ---
LOG ROLLER: PT TO ROOM FROM LOBBY.
[2019-12-18 19:09] LABS: MICROSCOPIC AUTO
--- NOTE | 2019-12-18 19:24 | NUR ---
PT IN ROOM ON CELL PHONE. DENIES ANY NEEDS OR CONCERNS AT THIS TIME. CALL LIGHT IN REACH.
[2019-12-18 19:28] LABS: CULTURE INDICATED? YES
[2019-12-18] MEDS ORDERED: CYCLOBENZAPRINE 10 MG TABLET PO ONE (20:15)
[2019-12-18] MEDS ORDERED: CEFTRIAXONE PMX 1GM/50ML 50 ML IVPB ONE (20:30)
== END 2019-12-18 20:48 | disposition home or self-care (01) ==
LOC: ED 17:30
DX: N30.00 Acute cystitis without hematuria (principal); K59.00 Constipation, unspecified; R00.0 Tachycardia, unspecified; K21.9 Gastro-esophageal reflux disease without esophagitis
CPT/HCPCS: 36415; 80053; 81001; 83690; 85025; 87077; 87086; 99283